=== PATIENT | male | born 1965 | race Caucasian/White ===

== ENCOUNTER 2018-05-26 14:23 | Emergency (ER) | payer OTHER ==
[~2018-05-26] VITALS: Ht 177.8 cm; Wt 136.5 kg
[2018-05-26] MEDS ORDERED: PRINIVIL20 MG PO (14:29)
[2018-05-26 15:12] LABS: ABSOLUTE BASOPHILS 0.1 thou/uL (0.0-0.2); ABSOLUTE EOSINOPHILS 0.2 thou/uL (0.0-0.7); ABSOLUTE LYMPHOCYTES 2.3 thou/uL (0.8-5.3); ABSOLUTE MONOCYTES 0.9 thou/uL (0.0-1.2); ABSOLUTE NEUTROPHILS 7.1 thou/uL (1.6-8.1); BASOPHILS 1.3 %; EOSINOPHILS 1.9 %; HEMATOCRIT 42.3 % (42.0-52.0); HEMOGLOBIN 14.6 gm/dL (14.0-18.0); LYMPHOCYTES 21.5 %; MCH 29.7 pg (26.0-34.0); MCHC 34.4 g/dL (28.0-37.0); MCV 86.3 fL (80.0-100.0); MONOCYTES 8.2 %; MPV 8.8 fl. (7.2-11.1); NUCLEATED RBCS 0 /100WBC; PLATELET COUNT* 217 thou/uL (150-400); POLYS 67.1 %; RDW-CV 13.7 % (10.5-14.5); WBC 10.5 thou/uL (4.0-11.0)
[2018-05-26 15:20] LABS: ANION GAP 6 mmol/L (7-16); BUN 24 mg/dL (7-18); CHLORIDE 102 mmol/L (98-107); CO2 28 mmol/L (21-32); CREATININE 1.2 mg/dL (0.6-1.3); GLUCOSE 122 mg/dL (70-99); POTASSIUM 4.4 mmol/L (3.5-5.1); SODIUM 136 mmol/L (136-145)
[2018-05-26 15:31] LABS: ALBUMIN 3.3 g/dL (3.4-5.0); ALKALINE PHOSPHATASE 74 U/L (46-116); LIPASE 123 U/L (73-393); NT-PRO BRAIN NAT PEPTIDE 11 pg/mL (<300); SGOT 15 U/L (15-37); SGPT 25 U/L (30-65); TOTAL BILIRUBIN 0.3 mg/dL (<0.1-1.0); TOTAL PROTEIN 7.3 g/dL (6.4-8.2); TROPONIN-I LEVEL <0.06 ng/mL (<0.06)
[2018-05-26 16:00] VITALS: BP 160/100
--- NOTE | 2018-05-27 17:54 | EKG ---
[place] [address] ELECTROCARDIOGRAM REPORT Name: HANANE LOGAN Room: [facility]#: [id number] Admission: 05/26/18 Attend Phys: Discharge: 05/26/18 Date of : 69 Report #: [id number] THIS REPORT FOR: //name// [facility] ED Test Date: 2018-05-26 Test Time: 14:29:30 Pat Name: HANANE LOGAN Department: Room: Gender: M President [employer]: JSatish : 1965 Requested By: Jorge Serna Order Number: [id number] MD: Papo Rosas Measurements Intervals [place] Rate: 96 P: 43 ND: 140 QRS: 75 QRSD: 95 T: 51 QT: 333 QTc: 421 Interpretive Statements Sinus rhythm Abnormal R-wave progression, early transition Abnormal inferior Q waves No previous ECG available for comparison Electronically Signed On 05-27-2018 17:54:27 CDT by Papo Rosas [email or web address] <ELECTRONICALLY SIGNED> By: Papo Rosas MD, [facility] 05/27/18 1754 1429 1429 Papo Rosas MD, FACC /EPI
== END 2018-05-26 16:02 | disposition home or self-care (01) ==
LOC: M.ERS 14:23
PROVIDERS: Emergency Medicine
DX: I10 Essential (primary) hypertension (principal)

== ENCOUNTER 2018-06-01 17:44 | Emergency (ER) | payer OTHER ==
[~2018-06-01] VITALS: Ht 180.3 cm; Wt 131.6 kg
[~2018-06-01 17:44] MED LIST: PRINIVIL20 MG PO
[2018-06-01 18:15] LABS: HEMATOCRIT 44.1 % (42.0-52.0); MCH 28.9 pg (26.0-34.0); NUCLEATED RBCS 0 /100WBC; PLATELET COUNT* 227 thou/uL (150-400); RBC 5.18 mil/uL (4.50-6.00); RDW-CV 13.5 % (10.5-14.5); WBC 15.6 thou/uL (4.0-11.0)
[2018-06-01 18:26] LABS: CALCIUM 9.3 mg/dL (8.5-10.1); CREATININE 1.2 mg/dL (0.6-1.3); POTASSIUM 3.8 mmol/L (3.5-5.1)
[2018-06-01 18:30] LABS: ALBUMIN 3.7 g/dL (3.4-5.0); TOTAL BILIRUBIN 0.4 mg/dL (<0.1-1.0); TOTAL PROTEIN 7.5 g/dL (6.4-8.2)
[2018-06-01 19:06] LABS: ABSOLUTE EOSINOPHILS 0.2 thou/uL (0.0-0.7); ABSOLUTE MONOCYTES 0.5 thou/uL (0.0-1.2); ABSOLUTE NEUTROPHILS 12.9 thou/uL (1.6-8.1); PLATELET ESTIMATE ADEQUATE
[2018-06-01 19:07] LABS: ANISOCYTOSIS Occasional; TOXIC GRANULATION 1+
[2018-06-01] MEDS ORDERED: VISTARIL 25 MG25 M1 PO (20:18)
[2018-06-01] MEDS ORDERED: PEPCID20 MG PO (20:18)
[2018-06-01 20:35] VITALS: BP 178/104
--- NOTE | 2018-06-02 12:56 | EKG ---
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 : 1965 Requested By: Juve Herrera Order Number: [id number] MD: Damion Young Measurements Intervals [place] Rate: 72 P: 54 OR: 155 QRS: 68 QRSD: 102 T: 30 QT: 397 QTc: 435 Interpretive Statements Sinus rhythm Abnormal R-wave progression, early transition Compared to ECG 05/26/2018 14:29:30 Inferior Q waves no longer present Q waves no longer present Electronically Signed On 06-02-2018 12:56:20 CDT by Damion Young [email or web address] <ELECTRONICALLY SIGNED> By: Damion Young MD, [facility] 06/02/18 1256 1806 180 Damion Young MD, [facility] /EPI
== END 2018-06-01 20:35 | disposition home or self-care (01) ==
LOC: M.ERS 17:44
PROVIDERS: Nurse Practitioner Psychiatric/Mental Health
DX: F41.9 Anxiety disorder, unspecified (principal); I10 Essential (primary) hypertension; D72.829 Elevated white blood cell count, unspecified; F43.0 Acute stress reaction; R42 Dizziness and giddiness

== ENCOUNTER 2018-06-02 22:28 | Inpatient (IN) | payer OTHER ==
[~2018-06-02] VITALS: Ht 180.3 cm; Wt 147.9 kg
[~2018-06-02 22:28] MED LIST changes: +PEPCID20 MG PO; +VISTARIL 25 MG25 M1 PO
[2018-06-02 22:44] VITALS: BP 125/89
[2018-06-02 23:31] LABS: HEMATOCRIT 43.9 % (42.0-52.0); MCH 29.3 pg (26.0-34.0); MCHC 34.2 g/dL (28.0-37.0); MCV 85.6 fL (80.0-100.0); MPV 9.6 fl. (7.2-11.1); NUCLEATED RBCS 0 /100WBC; PLATELET COUNT* 206 thou/uL (150-400); RBC 5.13 mil/uL (4.50-6.00); RDW-CV 13.9 % (10.5-14.5); WBC 27.4 thou/uL (4.0-11.0)
[2018-06-02 23:35] LABS: CALCIUM 8.9 mg/dL (8.5-10.1); CREATININE 1.1 mg/dL (0.6-1.3); POTASSIUM 3.7 mmol/L (3.5-5.1)
[2018-06-02 23:39] LABS: ALBUMIN 3.4 g/dL (3.4-5.0); TOTAL BILIRUBIN 1.7 mg/dL (<0.1-1.0); TOTAL PROTEIN 7.8 g/dL (6.4-8.2)
[2018-06-03 00:09] LABS: ABSOLUTE BASOPHILS 0.3 thou/uL (0.0-0.2); ABSOLUTE LYMPHOCYTES 1.4 thou/uL (0.8-5.3); ABSOLUTE MONOCYTES 0.8 thou/uL (0.0-1.2); ABSOLUTE NEUTROPHILS 24.9 thou/uL (1.6-8.1)
[2018-06-03 00:10] LABS: PLATELET ESTIMATE ADEQUATE
[2018-06-03 00:52] LABS: URINE BILIRUBIN NEGATIVE (Negative); URINE BLOOD TRACE (Negative); URINE CLARITY CLEAR; URINE COLOR YELLOW; URINE GLUCOSE-RANDOM NEGATIVE (Negative); URINE KETONES NEGATIVE (Negative); URINE LEUKOCYTES-REFLEX NEGATIVE (Negative); URINE NITRITE-REFLEX NEGATIVE (Negative); URINE PROTEIN TRACE (Negative); URINE SPECIFIC GRAVITY <= 1.005 (1.005-1.030)
[2018-06-03 01:55] VITALS: BP 133/90
[2018-06-03 02:15] VITALS: BP 138/89
[2018-06-03 10:50] VITALS: BP 137/94
[2018-06-03 11:36] LABS: HEMATOCRIT 40.2 % (42.0-52.0); HEMOGLOBIN 13.6 gm/dL (14.0-18.0); MCH 29.3 pg (26.0-34.0); MCV 86.2 fL (80.0-100.0); MPV 9.1 fl. (7.2-11.1); RBC 4.66 mil/uL (4.50-6.00); RDW-CV 13.9 % (10.5-14.5); WBC 25.6 thou/uL (4.0-11.0)
[2018-06-03 11:48] LABS: ALBUMIN 2.7 g/dL (3.4-5.0); CALCIUM 8.4 mg/dL (8.5-10.1); CREATININE 1.2 mg/dL (0.6-1.3); DIRECT BILIRUBIN 0.6 mg/dL (<0.1-0.3); POTASSIUM 3.8 mmol/L (3.5-5.1); TOTAL BILIRUBIN 1.6 mg/dL (<0.1-1.0); TOTAL PROTEIN 7.2 g/dL (6.4-8.2)
[2018-06-03 16:06] VITALS: BP 158/80
[2018-06-03 20:00] VITALS: BP 119/78
[2018-06-04] VITALS: BP 105/67
[2018-06-04 04:00] VITALS: BP 135/80
[2018-06-04 04:34] LABS: ABSOLUTE BASOPHILS 0.1 thou/uL (0.0-0.2); ABSOLUTE EOSINOPHILS 0.1 thou/uL (0.0-0.7); ABSOLUTE LYMPHOCYTES 0.5 thou/uL (0.8-5.3); ABSOLUTE MONOCYTES 0.5 thou/uL (0.0-1.2); ABSOLUTE NEUTROPHILS 16.6 thou/uL (1.6-8.1); BASOPHILS 0.3 %; EOSINOPHILS 0.3 %; HEMATOCRIT 37.2 % (42.0-52.0); HEMOGLOBIN 12.4 gm/dL (14.0-18.0); MCH 29.1 pg (26.0-34.0); MCHC 33.4 g/dL (28.0-37.0); MCV 87.1 fL (80.0-100.0); MONOCYTES 2.7 %; MPV 9.5 fl. (7.2-11.1); NUCLEATED RBCS 0 /100WBC; PLATELET COUNT* 139 thou/uL (150-400); POLYS 93.7 %; RBC 4.28 mil/uL (4.50-6.00); RDW-CV 14.1 % (10.5-14.5); WBC 17.7 thou/uL (4.0-11.0)
[2018-06-04 04:54] LABS: CALCIUM 7.9 mg/dL (8.5-10.1); CREATININE 1.7 mg/dL (0.6-1.3); POTASSIUM 3.6 mmol/L (3.5-5.1)
[2018-06-04 06:47] LABS: ALBUMIN 2.3 g/dL (3.4-5.0); DIRECT BILIRUBIN 0.9 mg/dL (<0.1-0.3); TOTAL BILIRUBIN 1.4 mg/dL (<0.1-1.0); TOTAL PROTEIN 6.6 g/dL (6.4-8.2)
[2018-06-04 08:00] VITALS: BP 126/89
[2018-06-04 15:30] VITALS: BP 143/99
[2018-06-04 19:55] VITALS: BP 139/87
[2018-06-05] VITALS (8 sets, daily range): BP systolic 125–218; BP diastolic 79–152
[2018-06-05 03:40] LABS: ABSOLUTE BASOPHILS 0.1 thou/uL (0.0-0.2); ABSOLUTE EOSINOPHILS 0.1 thou/uL (0.0-0.7); ABSOLUTE LYMPHOCYTES 0.8 thou/uL (0.8-5.3); ABSOLUTE MONOCYTES 0.3 thou/uL (0.0-1.2); ABSOLUTE NEUTROPHILS 10.1 thou/uL (1.6-8.1); BASOPHILS 0.5 %; EOSINOPHILS 0.6 %; HEMATOCRIT 39.5 % (42.0-52.0); HEMOGLOBIN 13.2 gm/dL (14.0-18.0); MCH 29.1 pg (26.0-34.0); MCHC 33.5 g/dL (28.0-37.0); MCV 86.8 fL (80.0-100.0); MPV 9.6 fl. (7.2-11.1); NUCLEATED RBCS 0 /100WBC; PLATELET COUNT* 159 thou/uL (150-400); POLYS 88.9 %; RBC 4.55 mil/uL (4.50-6.00); RDW-CV 14.4 % (10.5-14.5); WBC 11.4 thou/uL (4.0-11.0)
[2018-06-05 04:04] LABS: ALBUMIN 2.2 g/dL (3.4-5.0); CALCIUM 8.6 mg/dL (8.5-10.1); CREATININE 1.8 mg/dL (0.6-1.3); POTASSIUM 3.4 mmol/L (3.5-5.1); PREALBUMIN 11.3 mg/dL (18.0-35.7); TOTAL BILIRUBIN 1.7 mg/dL (<0.1-1.0); TOTAL PROTEIN 7.4 g/dL (6.4-8.2)
--- NOTE | 2018-06-05 10:46 | EKG ---
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 : 1965 Requested By: Reggie Bay Order Number: [id number] Reading MD: Kwabena Sparrow Measurements Intervals [place] Rate: 121 P: 29 GA: 130 QRS: 43 QRSD: 95 T: -5 QT: 303 QTc: 430 Interpretive Statements Sinus tachycardia Borderline T abnormalities, inferior leads Baseline wander in lead(s) V6 Compared to ECG 06/01/2018 18:06:53 T-wave abnormality now present Sinus rhythm no longer present Electronically Signed On 06-05-2018 10:46:41 CDT by Kwabena Sparrow [email or web address] <ELECTRONICALLY SIGNED> By: Kwabena Sparrow MD, FAC 06/05/18 1046 0639 0639 Kwabena Sparrow MD, FAC /EPI
--- NOTE | 2018-06-05 10:46 | EKG ---
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 : 1965 Requested By: Reggie Bay Order Number: [id number] Zulema MD: Kwabena Sparrow Measurements Intervals [place] Rate: 137 P: 75 [place]: 122 QRS: 54 QRSD: 109 T: -22 QT: 279 QTc: 422 Interpretive Statements Sinus tachycardia Atrial premature complex Abnormal R-wave progression, early transition Inferior infarct, age indeterminate Compared to ECG 06/01/2018 18:06:53 Atrial premature complex(es) now present Myocardial infarct finding now present Sinus rhythm no longer present Electronically Signed On 06-05-2018 10:46:15 CDT by Kwabena Sparrow [email or web address] <ELECTRONICALLY SIGNED> By: Kwabena Sparrow MD, [facility] 06/05/18 1046 0254 0254 Kwabena Sparrow MD, [facility] /EPI
[2018-06-05 11:11] LABS: CALCIUM 8.2 mg/dL (8.5-10.1); CREATININE 1.7 mg/dL (0.6-1.3); MAGNESIUM 2.2 mg/dL (1.8-2.4); POTASSIUM 3.5 mmol/L (3.5-5.1)
[2018-06-06] VITALS (9 sets, daily range): BP systolic 130–165; BP diastolic 86–105
[2018-06-06 04:52] LABS: HEMATOCRIT 33.1 % (42.0-52.0); MCHC 33.7 g/dL (28.0-37.0); MCV 86.1 fL (80.0-100.0); MPV 8.6 fl. (7.2-11.1); RBC 3.84 mil/uL (4.50-6.00); RDW-CV 14.4 % (10.5-14.5); WBC 15.8 thou/uL (4.0-11.0)
[2018-06-06 05:10] LABS: ALBUMIN 1.8 g/dL (3.4-5.0); CREATININE 1.5 mg/dL (0.6-1.3); MAGNESIUM 2.2 mg/dL (1.8-2.4); POTASSIUM 3.8 mmol/L (3.5-5.1); TOTAL BILIRUBIN 0.8 mg/dL (<0.1-1.0); TOTAL PROTEIN 6.5 g/dL (6.4-8.2)
[2018-06-06 05:16] LABS: HEMOGLOBIN 11.1 gm/dL (14.0-18.0)
[2018-06-07 03:50] VITALS: BP 138/97
[2018-06-07 04:45] LABS: HEMATOCRIT 31.7 % (42.0-52.0); HEMOGLOBIN 10.5 gm/dL (14.0-18.0); MCH 28.9 pg (26.0-34.0); MCHC 33.2 g/dL (28.0-37.0); MPV 8.7 fl. (7.2-11.1); NUCLEATED RBCS 0 /100WBC; PLATELET COUNT* 178 thou/uL (150-400); RBC 3.64 mil/uL (4.50-6.00); RDW-CV 14.2 % (10.5-14.5); WBC 13.5 thou/uL (4.0-11.0)
[2018-06-07 05:07] LABS: ALBUMIN 1.6 g/dL (3.4-5.0); CALCIUM 7.7 mg/dL (8.5-10.1); CREATININE 1.4 mg/dL (0.6-1.3); POTASSIUM 3.7 mmol/L (3.5-5.1); TOTAL BILIRUBIN 0.6 mg/dL (<0.1-1.0); TOTAL PROTEIN 6.1 g/dL (6.4-8.2)
[2018-06-07 06:23] LABS: ABSOLUTE BASOPHILS 0.1 thou/uL (0.0-0.2); ABSOLUTE EOSINOPHILS 0.5 thou/uL (0.0-0.7); ABSOLUTE LYMPHOCYTES 2.3 thou/uL (0.8-5.3); ABSOLUTE MONOCYTES 1.1 thou/uL (0.0-1.2); ABSOLUTE NEUTROPHILS 9.5 thou/uL (1.6-8.1); ANISOCYTOSIS 1+; PLATELET ESTIMATE ADEQUATE; POIKILOCYTOSIS 1+
[2018-06-07 08:00] VITALS: BP 177/106
--- NOTE | 2018-06-07 09:53 | CON ---
[address] [address] CONSULTATION Name: HANANE LOGAN Room: [address] IN .R.#: [id number] Admission: 06/03/18 Attend Phys: Vidal Morrow MD Discharge: Date of : 69 Report #: [id number] THIS REPORT FOR: //name// CC: Vidal Morrow [facility] physician/PCP DATE OF SERVICE: 06/06/2018 ATTENDING PHYSICIAN: Vidal Morrow M.D. REASON FOR EVALUATION: Gangrenous cholecystitis complicated by multiple abscesses post laparoscopic cholecystectomy with drainage of abscess fluid. HISTORY OF PRESENT ILLNESS: Chart reviewed, the patient examined. This is a 52-year-old gentleman without significant medical history who was admitted through the Emergency Room with complaints of abdominal pain. Evaluation was undertaken. There was a concern about hiatal hernia. The pain did localize to the upper part of the abdomen. Various imaging studies were done, ultimately underwent laparoscopic evaluation, was found to have acute gangrenous cholecystitis with multiple intraabdominal abscesses, underwent laparoscopic cholecystectomy, and placement of a cholecystostomy tube as well. Cultures are pending. Postop course has been complicated by some persistent pain. He does admit to some dyspnea at times, has had low-grade temperature elevations. He was empirically placed on piperacillin and tazobactam. He is not encephalopathic. ALLERGIES: None known. MEDICATIONS: Include enoxaparin, docusate sodium, pantoprazole, Zosyn, p.r.n. analgesics and antiemetics. PAST MEDICAL HISTORY: Includes hypertension, hiatal hernia. SOCIAL HISTORY: Nonsmoker, occasional ethanol. FAMILY HISTORY: Noncontributory. REVIEW OF SYSTEMS: As above. PHYSICAL EXAMINATION: GENERAL: He is alert, cooperative, in moderate distress. He is sitting up in the chair, appears to be generally well nourished. VITAL SIGNS: Temperature 99.8, pulse 92, respirations 18, blood pressure 165/105. SKIN: Warm, dry, no rashes. HEENT: [place] [address] CONSULTATION Name: HANANE LOGAN Room: [address]#: [id number] Admission: 06/03/18 Attend Phys: Vidal Morrow MD Discharge: Date of : 69 Report #: [id number] NECK: Supple. LUNGS: Few scattered crackles at the bases. HEART: Regular. Borderline tachycardic. I do not appreciate murmur. ABDOMEN: Obese, [address] Dressing in the right upper quadrant. There is some significant tenderness, no peritoneal signs. GENITOURINARY AND RECTAL: Deferred. LABORATORY DATA: Prealbumin was 9.3. CBC: White count of 15.8, H and H 11.1 and 33.1, platelets of 171. Electrolytes: Sodium 136, potassium 3.8, chloride 105, bicarbonate is 23, anion gap of 8, BUN and creatinine 21 and 1.5, glucose of 152. LFTs unremarkable. Albumin of 1.8, total protein 6.5. Estimated GFR of 50. I reviewed the operative report. Culture is pending. ASSESSMENT AND PLAN: Gangrenous cholecystitis complicated by multiple intra-abdominal abscesses. We will continue broad spectrum parenteral therapy. At this point, clearly he is not eating very well, some clear liquids at this point. He has low grade temperature elevations, I think there could be lot of explanation for that. I did encourage him to use incentive spirometry. We will go ahead and get a chest x-ray. In addition to that concerns operative site with days of antibacterials, we will add fluconazole in case of a fungal infection. We will monitor expectantly for other evidence of nosocomial related infectious complications. <ELECTRONICALLY SIGNED> By: Vito Amaral MD 06/07/18 0953 1216 1517Joethan Amaral MD /nt
[2018-06-07 12:00] VITALS: BP 159/99
[2018-06-07 16:13] VITALS: BP 145/96
[2018-06-07 20:00] VITALS: BP 175/101
[2018-06-08] VITALS (7 sets, daily range): BP systolic 157–180; BP diastolic 95–106
[2018-06-08 05:05] LABS: HEMATOCRIT 33.9 % (42.0-52.0); HEMOGLOBIN 11.4 gm/dL (14.0-18.0); MCH 29.1 pg (26.0-34.0); MCHC 33.6 g/dL (28.0-37.0); MCV 86.6 fL (80.0-100.0); MPV 8.7 fl. (7.2-11.1); RBC 3.91 mil/uL (4.50-6.00); RDW-CV 14.2 % (10.5-14.5)
[2018-06-08 05:14] LABS: ALBUMIN 1.7 g/dL (3.4-5.0); CALCIUM 7.9 mg/dL (8.5-10.1); CREATININE 1.3 mg/dL (0.6-1.3); MAGNESIUM 1.7 mg/dL (1.8-2.4); PHOSPHORUS* 3.2 mg/dL (2.5-4.9); POTASSIUM 3.5 mmol/L (3.5-5.1); TOTAL BILIRUBIN 0.6 mg/dL (<0.1-1.0); TOTAL PROTEIN 6.2 g/dL (6.4-8.2)
[2018-06-09 00:37] LABS: HEMATOCRIT 35.2 % (42.0-52.0); HEMOGLOBIN 11.7 gm/dL (14.0-18.0); MCH 28.9 pg (26.0-34.0); MCHC 33.3 g/dL (28.0-37.0); MCV 86.9 fL (80.0-100.0); MPV 8.4 fl. (7.2-11.1); RBC 4.05 mil/uL (4.50-6.00); WBC 14.9 thou/uL (4.0-11.0)
[2018-06-09 00:50] VITALS: BP 155/100
[2018-06-09 00:52] LABS: ALBUMIN 1.8 g/dL (3.4-5.0); CALCIUM 7.9 mg/dL (8.5-10.1); CREATININE 1.2 mg/dL (0.6-1.3); MAGNESIUM 2.2 mg/dL (1.8-2.4); PHOSPHORUS* 3.7 mg/dL (2.5-4.9); POTASSIUM 3.7 mmol/L (3.5-5.1); TOTAL BILIRUBIN 0.5 mg/dL (<0.1-1.0); TOTAL PROTEIN 6.2 g/dL (6.4-8.2)
[2018-06-09 05:00] VITALS: BP 150/98
[2018-06-09 11:56] VITALS: BP 152/93
[2018-06-09 17:41] VITALS: BP 168/100
[2018-06-09 19:35] VITALS: BP 154/97
[2018-06-10] VITALS (8 sets, daily range): BP systolic 148–179; BP diastolic 89–100
[2018-06-10 05:18] LABS: HEMATOCRIT 35.5 % (42.0-52.0); HEMOGLOBIN 11.9 gm/dL (14.0-18.0); MCHC 33.5 g/dL (28.0-37.0); MCV 86.6 fL (80.0-100.0); MPV 8.5 fl. (7.2-11.1); NUCLEATED RBCS 0 /100WBC; PLATELET COUNT* 262 thou/uL (150-400); RDW-CV 13.9 % (10.5-14.5); WBC 15.4 thou/uL (4.0-11.0)
[2018-06-10 05:30] LABS: ALBUMIN 1.9 g/dL (3.4-5.0); CALCIUM 7.8 mg/dL (8.5-10.1); CREATININE 1.2 mg/dL (0.6-1.3); POTASSIUM 3.4 mmol/L (3.5-5.1); TOTAL BILIRUBIN 0.5 mg/dL (<0.1-1.0); TOTAL PROTEIN 6.5 g/dL (6.4-8.2)
[2018-06-10 05:56] LABS: PREALBUMIN 19.3 mg/dL (18.0-35.7)
[2018-06-10 06:21] LABS: ABSOLUTE EOSINOPHILS 0.2 thou/uL (0.0-0.7); ABSOLUTE LYMPHOCYTES 1.4 thou/uL (0.8-5.3); ABSOLUTE MONOCYTES 0.9 thou/uL (0.0-1.2); ABSOLUTE NEUTROPHILS 12.9 thou/uL (1.6-8.1); ANISOCYTOSIS 1+; PLATELET ESTIMATE ADEQUATE; POIKILOCYTOSIS 1+; POLYCHROMASIA Occasional
[2018-06-11 00:17] VITALS: BP 139/95
[2018-06-11 04:00] VITALS: BP 150/99
[2018-06-11 08:17] VITALS: BP 168/98
[2018-06-11 08:47] LABS: HEMATOCRIT 34.8 % (42.0-52.0); HEMOGLOBIN 11.4 gm/dL (14.0-18.0); MCH 28.8 pg (26.0-34.0); MCHC 32.9 g/dL (28.0-37.0); MCV 87.5 fL (80.0-100.0); MPV 8.8 fl. (7.2-11.1); RBC 3.97 mil/uL (4.50-6.00); RDW-CV 13.9 % (10.5-14.5); WBC 13.1 thou/uL (4.0-11.0)
[2018-06-11] MEDS ORDERED: CLONIDINE0.1 TRANSDERM (11:09)
[2018-06-11 11:10] VITALS: BP 168/98
[2018-06-11] MEDS ORDERED: AUGMENTIN 875-1 EACH PO (14:20)
--- NOTE | 2018-06-21 10:40 | OP ---
[address] [address] OPERATIVE REPORT Name: HANANE LOGAN Room: [address] IN .R.#: [id number] Admission: 06/03/18 Attend Phys: Vidal Morrow MD Discharge: 06/11/18 Date of : 69 Report #: [id number] THIS REPORT FOR: //name// CC: Vidal Morrow MD [facility] physician/PCP DATE OF SERVICE: 06/05/2018 PREOPERATIVE DIAGNOSIS: Acute cholecystitis with cholelithiasis. POSTOPERATIVE DIAGNOSIS: Acute gangrenous cholecystitis with multiple intra-abdominal abscesses. PROCEDURE: Diagnostic laparoscopy with laparoscopic placement of cholecystostomy tube, cholecystogram and drainage of multiple abscesses. SURGEON: Joey Torres DO DRUG COORDINATOR: Dr. Carly Leary. SECOND LANDSCAPING SPECIALIST: JACEY student, Joey Moise. ANESTHESIA: General endotracheal. ESTIMATED BLOOD LOSS: Less than 20 mL COMPLICATIONS: None. DESCRIPTION OF PROCEDURE: After obtaining proper consents and discussing risks and complications with the patient, he was taken to the operating room, laid on the supine position and administered general anesthesia. He was then prepped and draped in the usual fashion. A timeout was performed. We confirmed the appropriate patient and procedure. Preoperative antibiotics had been given. SCDs were in place. We then made a supraumbilical skin incision that was carried down through the skin into the subcutaneous tissue using electrocautery for hemostasis. Once the fascia was encountered, it was incised along the midline, grasped and elevated with [facility] clamps and divided further. The peritoneum was then bluntly opened using a hemostat. A finger was placed inside the peritoneal cavity to assure that there were no teja-incisional adhesions. Next, 2-0 Vicryl sutures were placed in a [id number]-gt-[id number] fashion to secure the Kwesi trocar, which was then inserted and insufflation was begun. Once insufflation was complete, full visual inspection of the anterior abdominal organs was performed. This revealed a large amount of intraperitoneal fat. We were actually unable to visualize the liver at all on either the right or left lobes because the omentum was up over top of the liver[place] [address] OPERATIVE REPORT Name: HANANE LOGAN Room: [address] IN [facility]#: [id number] Admission: 06/03/18 Attend Phys: Vidal Morrow MD Discharge: 06/11/18 Date of : 69 Report #: [id number] visualize any small bowel or large bowel because the omentum was completely covering this also. There did appear to be some inflammation in the right upper quadrant. The omentum was adherent to the abdominal wall in this area. Once this area was identified, I did try to sweep it away using the camera, but it was quite firm, so we elected to place an 11 mm trocar in the subxiphoid position. Once this trocar was placed, I was able to take a blunt grasper and sweep along the abdominal wall and immediately upon trying to sweep the omentum down, we encountered a pocket of purulent fluid and what appeared to be the dome of the gallbladder. We immediately obtained a suction worm farm laborer and I used that to suction the fluid. We then were able to sweep the omentum down. The omentum was quite firm surrounding what now was revealed to be the gallbladder, which was gangrenous in multiple different areas. There was fluid surrounding the entire gallbladder and liver. This was suctioned immediately. I then checked on the left side of the patient's abdomen as well and in the infrahepatic region between the stomach and the liver, there was also another fluid collection, which was very purulent in appearance. This area was broken apart using the suction worm farm laborer as well. I then placed another 5 mm trocar in the right upper quadrant. At this point, we attempted to sweep the omentum away, but it was quite firm and I knew for sure that I would be unable to visualize the anatomy in order to remove the patient's gallbladder. The gallbladder was quite close to the abdominal wall on the right side, so we elected to place a 12-Albanian pigtail catheter as a cholecystostomy tube directly into the gallbladder. This was inserted after making a small sylvia in the skin. The catheter was inserted all the way into the gallbladder. We then aspirated the fluid out of the gallbladder. I did send some of this fluid for culture and sensitivity. We then had our C-arm brought in to assure that the tube was within the gallbladder. We did first take a contract negotiation manager film and then followed that up by doing a cholecystogram. We injected contrast through the cholecystostomy tube and it filled the gallbladder. There appeared to be a large amount of stones in the inferior aspect of the gallbladder and nothing passed through the gallbladder at all into any of the duct. I then aspirated this fluid back and then we copiously irrigated the gallbladder and aspirated the fluid, which was then discarded. I then copiously irrigated the abdominal cavity and explored further to assure there were no other abscesses including looking down in the pelvis, there was some fluid there from our irrigation, but no other abscesses were identified. I then placed a 19-Albanian Duane-Marie drain through the subxiphoid incision. This drain was placed down under the right and left lobes of the liver with the tail of the drain out by the gallbladder and cholecystostomy tube. All the drains were sutured in place using 2-0 nylon suture. The insufflation was then stopped. All air was released. The remaining trocars were removed. The umbilical fascia was closed using the 2 previously placed 0 Vicryl sutures plus 2 additional 0 Vicryl sutures. Skin incisions were closed using 4-0 Monocryl subcuticular stitches. Mastisol, Steri-Strips, sterile OpSite and pressure [place]ings [place] [address] OPERATIVE REPORT Name: HANANE LOGAN Room: [address]#: [id number] Admission: 06/03/18 Attend Phys: Vidal Morrow MD Discharge: 06/11/18 Date of : 69 Report #: [id number] tolerated the procedure well and was awakened in the operating room and transported to recovery room in stable condition. <ELECTRONICALLY SIGNED> By: Joey Torres DO 06/21/18 1040 1848 1926Adayami Torres DO /nt
== END 2018-06-11 14:55 | disposition home health service (06) | DRG 871 ==
LOC: M.ERS 22:28 → M.TBA-ER 06-03 01:32 → M.ORTHSURG 06-03 01:32 → M.2W 06-05 19:21 → M.ORTHSURG 06-10 12:17
PROVIDERS: Emergency Medicine; Family Medicine; Surgery; ADMIT Internal Medicine
PROC: 0W9G4ZZ Drainage of Peritoneal Cavity, Percutaneous Endoscopic Approach (ICD-10-PCS; principal; 2018-06-05)
PROC: 0F9440Z Drainage of Gallbladder with Drainage Device, Percutaneous Endoscopic Approach (ICD-10-PCS; principal; 2018-06-05)
DX: A41.9 Sepsis, unspecified organism (principal); N17.0 Acute kidney failure with tubular necrosis; K65.1 Peritoneal abscess; J96.91 Respiratory failure, unspecified with hypoxia; E43 Unspecified severe protein-calorie malnutrition; K81.0 Acute cholecystitis; Z68.42 Body mass index [BMI] 45.0-49.9, adult; I10 Essential (primary) hypertension; E86.0 Dehydration; E66.01 Morbid (severe) obesity due to excess calories; B96.1 Klebsiella pneumoniae [K. pneumoniae] as the cause of diseases classified elsewhere; B96.20 Unspecified Escherichia coli [E. coli] as the cause of diseases classified elsewhere; Z79.899 Other long term (current) drug therapy

== ENCOUNTER 2018-07-13 09:32 | Observation (INO) | payer OTHER ==
--- NOTE | ~2018-07-13 | H ---
[address] [address] HISTORY AND PHYSICAL Name: HANANE LOGAN Room: [address] Javier Stout#: [id number] Admission: 07/13/18 Attend Phys: Joey Torres DO Discharge: 07/14/18 Date of : [birth year] Report #: [id number] THIS REPORT FOR: //name// Please refer to the History and Physical performed in the physician's office. By: [id number] Records Staff JOANNA /JAIME
--- NOTE | ~2018-07-13 | OP ---
[address] [address] OPERATIVE REPORT Name: HANANE LOGAN Room: [address] Girish#: [id number] Admission: 07/13/18 Attend Phys: Joey Torres DO Discharge: Date of : [birth year] Report #: [id number] THIS REPORT FOR: //name// CC: Joey De Leon DO DATE OF SERVICE: 07/13/2018 REFERRING PHYSICIAN: Dr. Leon De Leon. INDICATION FOR PROCEDURE: The patient is a very pleasant 52-year-old male who presented previously with acute cholecystitis with cholelithiasis. We did take him to surgery initially for a laparoscopic cholecystectomy; however, he appeared to have a very gangrenous and nearly ruptured gallbladder. At that time, we were unable to identify any of the important structures in order to take out his gallbladder, so we had elected to place a cholecystostomy tube and allow drainage of the gallbladder and recovery for about 6 weeks. He did very well during that 6-week period and was scheduled for an elective laparoscopic cholecystectomy with details to follow this. DESCRIPTION OF PROCEDURE: After obtaining proper consents and discussing risks and complications with the patient and his family, he was taken to the operating room, laid in the supine position, administered general anesthesia. He was then prepped and draped in the usual fashion. A timeout was performed. We confirmed the appropriate patient and procedure. Preoperative antibiotics had been given. We had removed the cholecystostomy tube, which was draining some bilious fluid prior to prepping and draping the patient. We then made a small supraumbilical skin incision through the patient's previous skin incision. This was carried down through the skin into the subcutaneous tissue using electrocautery for hemostasis. Once the fascia was encountered, it was incised along the midline, grasped and elevated with Perla clamps and divided further. The peritoneum was then bluntly opened using a hemostat. A finger was placed inside the peritoneal cavity to assure that there were no teja-incisional adhesions. Next, two 0 Vicryl sutures were placed in a ngyvtq-dv-dqgra fashion to secure the Kwesi trocar, which was then inserted and insufflation was begun. Once insufflation was complete, full visual inspection of the anterior abdominal organs was performed. This revealed some adhesions along the right upper quadrant and also along where the cholecystostomy tube had been placed. We were unable to visualize the gallbladder at this point. We then were able to place a 5 mm trocar in the subxiphoid position through the patient's previous incision in this site. I was then able to easily sweep down filmy adhesions of the omentum to the abdominal wall so we could visualize the liver. There did appear to be omental adhesions surrounding the gallbladder still and also around the tract that went up into the abdominal wall and through where the cholecystostomy tube had been. I was able to place two more 5 mm trocars [place] [address] OPERATIVE REPORT Name: TANMAYJamilHANANE Room: [address] Javier Stout#: [id number] Admission: 07/13/18 Attend Phys: Joey Torres, DO Discharge: Date of : 69 Report #: [id number] were then able to dissect away the tract for the gallbladder and then the omentum was gently dissected away from the gallbladder until I was able to grasp and elevate the gallbladder with an alligator grasper for my assistant associate full professor. I was then able to bluntly dissect the omentum down. This was done using suction advertising manager, a [place] dissector, a right angle grasper and also electrocautery. This dissection did take approximately one hour for us to get the omental adhesions down, and we did elect to also place another 11 mm trocar and then used a fan retractor to hold the omentum away from Claudia pouch and the structures below it. I was then able to grasp and elevate Claudia pouch and the hepatoduodenal ligament was stripped down until I was able to visualize the cystic duct as it coursed directly into the gallbladder. The cystic duct and cystic artery were both dissected free. These were the only two structures entering the gallbladder. We obtained a critical view of safety. I was able to visualize the common hepatic duct and common bile duct below this and well out of harm's way. I was then able to clip the cystic duct and cystic artery proximally and distally and then divided them between clips. The gallbladder was then removed from the liver bed using blunt dissection as well as electrocautery. The gallbladder was quite adherent to the liver bed and there were 2 areas where I did actually get into the posterior wall of the gallbladder, but we were able to easily remove this and get back into the appropriate plane. The entire gallbladder was then removed and placed into an Endopouch. I then inspected the cystic duct and cystic artery stumps for any leak or bleeding, there was none noted. The liver bed was cauterized to assure hemostasis and as a precaution we did place a piece of Surgicel within the gallbladder fossa. We also placed a 15-Norwegian Duane-Marie drain through the right upper quadrant incision and laid this in the gallbladder fossa as well. We then removed all trocars under direct vision. I then removed the gallbladder through the umbilical incision. The umbilical fascia was closed using the 2 previously placed 0 Vicryl sutures plus 3 additional 0 Vicryl sutures. Skin incisions were all injected with 0.5% Marcaine without epinephrine and closed using 4-0 Monocryl subcuticular stitch. Mastisol, Steri-Strips, sterile OpSite and pressure dressings were placed. The patient tolerated the procedure well, was transported to recovery room in stable condition. By: 1424 1650Adam Claudia Torres DO /carolina
[~2018-07-13 09:32] MED LIST changes: +AUGMENTIN 875-1 EACH PO; +CLONIDINE0.1 TRANSDERM
[2018-07-13 10:01] LABS: HEMATOCRIT 41.2 % (42.0-52.0); HEMOGLOBIN 14.1 gm/dL (14.0-18.0); MCHC 34.3 g/dL (28.0-37.0); MCV 84.5 fL (80.0-100.0); MPV 9.6 fl. (7.2-11.1); RBC 4.88 mil/uL (4.50-6.00); RDW-CV 14.2 % (10.5-14.5)
[2018-07-13 10:16] LABS: CALCIUM 9.6 mg/dL (8.5-10.1); CREATININE 1.2 mg/dL (0.6-1.3); POTASSIUM 3.9 mmol/L (3.5-5.1)
[2018-07-13 10:21] LABS: ALBUMIN 3.7 g/dL (3.4-5.0); TOTAL BILIRUBIN 0.6 mg/dL (<0.1-1.0); TOTAL PROTEIN 8.3 g/dL (6.4-8.2)
[2018-07-13 16:23] VITALS: BP 108/71
[2018-07-13 20:10] VITALS: BP 110/64
[2018-07-14] VITALS: BP 105/73
[2018-07-14 04:00] VITALS: BP 104/69
[2018-07-14 04:07] LABS: HEMATOCRIT 38.2 % (42.0-52.0); HEMOGLOBIN 12.8 gm/dL (14.0-18.0); MCH 28.7 pg (26.0-34.0); MCHC 33.5 g/dL (28.0-37.0); MCV 85.7 fL (80.0-100.0); MPV 9.8 fl. (7.2-11.1); RBC 4.46 mil/uL (4.50-6.00); RDW-CV 13.9 % (10.5-14.5); WBC 14.6 thou/uL (4.0-11.0)
[2018-07-14 04:23] LABS: CALCIUM 8.8 mg/dL (8.5-10.1); CREATININE 1.3 mg/dL (0.6-1.3); POTASSIUM 4.4 mmol/L (3.5-5.1)
[2018-07-14 08:42] VITALS: BP 121/62
[2018-07-14 09:48] VITALS: BP 121/62
[2018-07-14] MEDS ORDERED: NORCO 5-325 TA1 EACH PO (12:18)
--- NOTE | 2018-08-07 15:00 | PATH ---
[address] [address] PATHOLOGY RPT PROCEDURE Name: HANANE VOSS Room: [address] Girish#: [id number] Admission: 07/13/18 Date of : 69 Discharge: 07/14/18 Report #: [id number] Path Case #: [id number] [facility] Accession Number: [id number] . 01 Material submitted: . GALLBLADDER . 01 Clinical history: . Acute gangrenous cholecystitis . 02 Diagnosis: Gallbladder, cholecystectomy: - Acute and chronic cholecystitis. (MAP:[facility]; 07/15/2018) . . Co-review: Dr. Scott QMS/07/15/2018 . 02 Electronically signed: . Papo Pérez MD, Pathologist NPI- [id number] . 01 Gross description: . The specimen is received in formalin, labeled "Hanane Voss, gallbladder", is a disrupted gallbladder measuring 6.2 x 2.5 x 1.7 cm with a myers-forman serosa. Further opening reveals a necrotic lining with forman-pink forman-brown mucosa. The wall is fibrous and measures up to 1.1 cm. No discrete calculi are identified. Director Heart tissue is submitted in A1-A3. ([facility]; 07/14/2018) SHS/SHS . 02 Pathologist provided ICD-10: K81.2 . 02 CPT . 487786 Specimen Comment: Report sent to / DR SANCHEZ Performed at: [address], [place], [place] [id number] MD Jono Washington MD Phone: [phone] Performed at: 02 [facility] [address], [place], [place] [id number] MD Henry Grider MD Phone: [phone]
== END 2018-07-14 13:08 | disposition home or self-care (01) ==
LOC: M.SUR 09:32 → M.ORTHSURG 14:37 → M.TBA 14:37 → M.ORTHSURG 15:49 → M.SUR 16:48 → M.ORTHSURG 07-14 13:08
PROVIDERS: ADMIT Surgery
DX: K80.00 Calculus of gallbladder with acute cholecystitis without obstruction (principal); I10 Essential (primary) hypertension; Z97.8 Presence of other specified devices; Z23 Encounter for immunization